=== PATIENT | female | born 1985 | race Caucasian/White ===

== ENCOUNTER 2016-12-30 13:53 | Emergency (ER) | payer OTHER ==
[2016-12-30 14:25] LABS: BILIRUBIN NEGATIVE (NEGATIVE); BLOOD NEGATIVE Ery/uL (NEGATIVE); CLARITY CLEAR (CLEAR); COLOR YELLOW (YELLOW); GLUCOSE (U) NORMAL (NORMAL); KETONE (U) TRACE mg/dL (NEGATIVE); LEUKOCYTES NEGATIVE Leu/uL (NEGATIVE); NITRITE NEGATIVE (NEGATIVE); PROTEIN TRACE (LOW) mg/dL (NEGATIVE); SPECIFIC GRAVITY 1.025 (1.001-1.030); UROBILINOGEN 0.2 mg/dL (0.2-1.0); pH 5.5 (5.0-9.0)
[2016-12-30 14:35] LABS: BACTERIA TRACE; MUCOUS TRACE
[2016-12-30 15:17] LABS: BASOPHIL 0.2 % (0-2); EOSINOPHIL 0.3 % (0-5); HCT 38.1 % (37.0-47.0); HGB 12.7 g/dl (12.5-16.0); LYMPHOCYTE 8.2 % (15-48); MCH 29.1 pg (25.0-31.0); MCHC 33.3 g/dL (32.0-36.0); MCV 87.4 fL (78.0-100.0); MONOCYTE 6.1 % (0-12); MPV 9.6 fL (6.0-9.5); NEUTROPHIL 85.2 % (41-80); PLT 138 K/uL (150-400); RBC 4.36 M/uL (4.20-5.40); RDW 13.6 % (11.5-14.0); WBC 9.7 K/uL (4.0-10.5)
[2016-12-30 15:35] LABS: CREATININE 0.6 mg/dL (0.5-1.0); POTASSIUM 3.7 mmol/L (3.5-5.1)
[2016-12-30 16:17] LABS: AMPHETAMINES POSITIVE (NEGATIVE); BARBITURATES NEGATIVE (NEGATIVE); BENZODIAZEPINES NEGATIVE (NEGATIVE); COCAINE NEGATIVE (NEGATIVE); MARIJUANA (THC) NEGATIVE (NEGATIVE); METHADONE NEGATIVE (NEGATIVE); TRICYCLIC ANTIDEPRESSANT NEGATIVE (NEGATIVE)
== END 2016-12-30 16:50 | disposition home or self-care (01) ==
LOC: FER 13:53
PROVIDERS: Emergency Medicine; Nurse Practitioner
DX: B34.9 Viral infection, unspecified (principal); E86.0 Dehydration; F17.210 Nicotine dependence, cigarettes, uncomplicated
CPT/HCPCS: 36415; 80048; 80305; 81001; 85025; 87804; 87899; 93005; J1885

== ENCOUNTER 2017-01-03 22:28 | Emergency (ER) | payer OTHER ==
[2017-01-03 23:30] LABS: BILIRUBIN NEGATIVE (NEGATIVE); BLOOD 3+ Ery/uL (NEGATIVE); COLOR YELLOW (YELLOW); GLUCOSE (U) NORMAL (NORMAL); KETONE (U) NEGATIVE (NEGATIVE); LEUKOCYTES 2+ Leu/uL (NEGATIVE); NITRITE NEGATIVE (NEGATIVE); PROTEIN TRACE (LOW) mg/dL (NEGATIVE); SPECIFIC GRAVITY <=1.005 (1.001-1.030)
[2017-01-03 23:32] LABS: CLARITY HAZY (CLEAR)
[2017-01-03 23:35] LABS: BACTERIA TRACE
[2017-01-03 23:40] LABS: BASOPHIL 0.4 % (0-2); EOSINOPHIL 0.3 % (0-5); HCT 33.2 % (37.0-47.0); HGB 11.2 g/dl (12.5-16.0); MCH 28.9 pg (25.0-31.0); MCHC 33.7 g/dL (32.0-36.0); MCV 85.6 fL (78.0-100.0); MONOCYTE 8.5 % (0-12); MPV 10.7 fL (6.0-9.5); NEUTROPHIL 77.8 % (41-80); PLT 94 K/uL (150-400); RBC 3.88 M/uL (4.20-5.40); RDW 14.5 % (11.5-14.0)
[2017-01-03 23:44] LABS: WBC 7.1 K/uL (4.0-10.5)
[2017-01-03 23:49] LABS: AMPHETAMINES POSITIVE (NEGATIVE); BARBITURATES NEGATIVE (NEGATIVE); BENZODIAZEPINES NEGATIVE (NEGATIVE); COCAINE NEGATIVE (NEGATIVE); MARIJUANA (THC) NEGATIVE (NEGATIVE); METHADONE NEGATIVE (NEGATIVE); TRICYCLIC ANTIDEPRESSANT NEGATIVE (NEGATIVE)
[2017-01-04 00:08] LABS: FT4 (FREE T4) 1.05 ng/dL (0.93-1.70); TSH (THYROID STIM HORMONE) 2.13 uIU/mL (0.270-4.200)
[2017-01-04 00:39] LABS: BAND 14 % (0-10); EOSINOPHIL(M) 1 % (0-5); LYMPHOCYTE(M) 16 % (15-48); MONOCYTE(M) 5 % (0-12); NEUTROPHILS(M) 63 % (41-80)
[2017-01-04 00:45] LABS: ALBUMIN 2.6 g/dL (3.5-5.0); BILIRUBIN - TOTAL 0.5 mg/dL (0.1-1.0); CREATININE 0.7 mg/dL (0.5-1.0); GLOBULIN (CALCULATION) 3.6 g/dL (2.2-4.2); POTASSIUM 3.6 mmol/L (3.5-5.1); TOTAL PROTEIN 6.2 g/dL (6.4-8.3)
[2017-01-04 01:10] LABS: TROPONIN T < 0.010 ng/mL
[2017-01-04 01:11] LABS: PRO-BNP 1761 pg/mL (0-125)
[2017-01-04 01:42] LABS: BILIRUBIN NEGATIVE (NEGATIVE); BLOOD 2+ Ery/uL (NEGATIVE); CLARITY CLEAR (CLEAR); COLOR YELLOW (YELLOW); GLUCOSE (U) NORMAL (NORMAL); KETONE (U) NEGATIVE (NEGATIVE); LEUKOCYTES 1+ Leu/uL (NEGATIVE); NITRITE NEGATIVE (NEGATIVE); PROTEIN NEGATIVE (NEGATIVE); SPECIFIC GRAVITY <=1.005 (1.001-1.030)
[2017-01-04 01:46] LABS: SQUAMOUS EPITHELIAL CELLS RARE; URINARY WBC RARE
[2017-01-10 14:15] LABS: PLATELET ESTIMATE DECREASED; PLATELET MORPHOLOGY NORMAL
[2017-01-10 14:16] LABS: TOTAL CELL COUNT 100
== END 2017-01-04 06:30 | disposition other institution (70) ==
LOC: FER 22:28
PROVIDERS: Emergency Medicine Emergency Medical Services
DX: J18.9 Pneumonia, unspecified organism (principal); R60.1 Generalized edema; R21 Rash and other nonspecific skin eruption; R00.0 Tachycardia, unspecified; E86.9 Volume depletion, unspecified; R82.90 Unspecified abnormal findings in urine; F17.210 Nicotine dependence, cigarettes, uncomplicated
CPT/HCPCS: 36415; 71010; 71275; 80053; 80305; 81001; 83605; 83880; 84439; 84443; 84484; 85025; 85379; 85651; 86140; 86308; 86403; 87040; 87076; 87077; 87088; 87186; 87450; 93005; C9113; J1885; J1940; J2060; J2270; J2405; J2930; J3370; Q9967

== ENCOUNTER 2021-04-02 17:47 | Emergency (ER) | payer OTHER ==
[~2021-04-02 17:47] MED LIST: BACTRIM DS TAB1 EACH PO; CLEOCIN300 MG PO; METOPROLOL TART25 M1 PO
[2021-04-02 18:22] LABS: BASOPHIL 0.3 % (0-2); EOSINOPHIL 2.7 % (0-5); HCT 39.5 % (37.0-47.0); HGB 12.4 g/dl (12.5-16.0); LYMPHOCYTE 23.6 % (15-48); MCH 29.7 pg (25.0-31.0); MCHC 31.4 g/dL (32.0-36.0); MCV 94.5 fL (78.0-100.0); MONOCYTE 10.3 % (0-12); MPV 10.2 fL (6.0-9.5); NEUTROPHIL 63.1 % (41-80); NRBC 0; PLT 178 K/uL (150-400); RBC 4.18 M/uL (4.20-5.40); RDW 13.1 % (11.5-14.0); WBC 3.8 K/uL (4.0-10.5)
[2021-04-02 18:32] LABS: INR 1.09 (0.9-1.2); PROTHROMBIN TIME 13.5 SECONDS (11.8-13.4); PTT 41.2 SECONDS (24.4-34.7)
[2021-04-02 18:33] LABS: D-DIMER 0.59 ug/mLFEU (0.00-0.41)
[2021-04-02 18:50] LABS: HCG QUANTITATIVE <1 mIU/mL (0-6); PRO-BNP 767 pg/mL (<125)
[2021-04-02 18:53] LABS: ALBUMIN 3.3 g/dL (3.4-5.0); ALKALINE PHOSHATASE 138 U/L (46-116); ALT 285 U/L (14-59); AST 149 U/L (15-37); BILIRUBIN - TOTAL 0.8 mg/dL (0.2-1.0); BUN 14 mg/dL (7-18); BUN/CREAT RATIO (CALC) 23.7 RATIO; CHLORIDE 105 mmol/L (98-107); CO2 (BICARBONATE) 29 mmol/L (21-32); CPK 59 U/L (26-192); CREATININE 0.59 mg/dL (0.51-0.95); GLOBULIN (CALCULATION) 4.8 g/dL; GLUCOSE 128 mg/dL (74-106); LDH 199 U/L (81-234); POTASSIUM 4.4 mmol/L (3.5-5.1); TOTAL PROTEIN 8.1 g/dL (6.4-8.2)
[2021-04-02 19:03] LABS: BILIRUBIN 1+ mg/dL (NEGATIVE); BLOOD NEGATIVE Ery/uL (NEGATIVE); CLARITY CLEAR (CLEAR); COLOR YELLOW (YELLOW); GLUCOSE (U) NORMAL (NORMAL); LEUKOCYTES NEGATIVE Leu/uL (NEGATIVE); NITRITE NEGATIVE (NEGATIVE); PROTEIN TRACE (LOW) mg/dL (NEGATIVE); SPECIFIC GRAVITY >=1.030 (1.001-1.030); pH 5.5 (5.0-9.0)
[2021-04-02 19:06] LABS: AMPHETAMINES NEGATIVE (NEGATIVE); BARBITURATES NEGATIVE (NEGATIVE); ECSTASY (MDMA) NEGATIVE (NEGATIVE); MARIJUANA (THC) NEGATIVE (NEGATIVE); METHADONE NEGATIVE (NEGATIVE); OPIATES POSITIVE (NEGATIVE)
[2021-04-02 19:07] LABS: OXYCODONE NEGATIVE (NEGATIVE)
[2021-04-03 10:02] LABS: BUN/CREAT RATIO (CALC) 14.3 RATIO; CREATININE 0.63 mg/dL (0.51-0.95); MAGNESIUM 1.8 mg/dL (1.8-2.4); POTASSIUM 3.2 mmol/L (3.5-5.1)
[2021-04-04 23:29] LABS: ALBUMIN 2.8 g/dL (3.4-5.0); BILIRUBIN - TOTAL 0.8 mg/dL (0.2-1.0); BUN/CREAT RATIO (CALC) 8.3 RATIO; CREATININE 0.6 mg/dL (0.51-0.95); GLOBULIN (CALCULATION) 4.3 g/dL; POTASSIUM 3.7 mmol/L (3.5-5.1); TOTAL PROTEIN 7.1 g/dL (6.4-8.2)
[2021-04-04 23:51] LABS: HCT 35.3 % (37.0-47.0); HGB 11.9 g/dl (12.5-16.0); MCH 29.8 pg (25.0-31.0); MCHC 33.7 g/dL (32.0-36.0); MCV 88.5 fL (78.0-100.0); MPV 10.3 fL (6.0-9.5); RBC 3.99 M/uL (4.20-5.40); RDW 12.4 % (11.5-14.0); WBC 3.7 K/uL (4.0-10.5)
== END 2021-04-05 11:55 | disposition home or self-care (01) ==
LOC: FER 17:47
PROVIDERS: Emergency Medicine; Emergency Medicine Emergency Medical Services
DX: T46.5X2A Poisoning by other antihypertensive drugs, intentional self-harm, initial encounter (principal); F11.20 Opioid dependence, uncomplicated; F17.200 Nicotine dependence, unspecified, uncomplicated; Z20.822 Contact with and (suspected) exposure to COVID-19
CPT/HCPCS: 36415; 36600; 71045; 80048; 80053; 80305; 81003; 82550; 82728; 82803; 83605; 83615; 83735; 83880; 84145; 84484; 84702; 85025; 85379; 85610; 85730; 86140; 93005; G0480; J7030; J7070; Q0169; U0002

== ENCOUNTER 2021-08-22 19:03 | Emergency (ER) | payer OTHER ==
[2021-08-22 19:38] LABS: BASOPHIL 0.5 % (0-2); EOSINOPHIL 1.6 % (0-5); HCT 43.4 % (37.0-47.0); HGB 14.5 g/dl (12.5-16.0); LYMPHOCYTE 39.5 % (15-48); MCH 30.7 pg (25.0-31.0); MCHC 33.4 g/dL (32.0-36.0); MCV 91.8 fL (78.0-100.0); MONOCYTE 6.1 % (0-12); MPV 10.9 fL (6.0-9.5); NRBC 0; PLT 238 K/uL (150-400); RBC 4.73 M/uL (4.20-5.40); RDW 12.3 % (11.5-14.0); WBC 6.1 K/uL (4.0-10.5)
[2021-08-22 20:01] LABS: BUN/CREAT RATIO (CALC) 14.3 RATIO; CREATININE 0.7 mg/dL (0.51-0.95); POTASSIUM 3.4 mmol/L (3.5-5.1)
[2021-08-22 20:18] LABS: BILIRUBIN NEGATIVE (NEGATIVE); BLOOD 3+ Ery/uL (NEGATIVE); CLARITY HAZY (CLEAR); COLOR RED (YELLOW); GLUCOSE (U) NORMAL (NORMAL); LEUKOCYTES NEGATIVE Leu/uL (NEGATIVE); NITRITE NEGATIVE (NEGATIVE); PROTEIN 2+ mg/dL (NEGATIVE); SPECIFIC GRAVITY 1.025 (1.001-1.030); UROBILINOGEN 0.2 mg/dL (0.2-1.0); pH 5.5 (5.0-9.0)
[2021-08-22 20:19] LABS: BACTERIA TRACE; URINARY RBC TNTC
[2021-08-22 20:20] LABS: AMPHETAMINES NEGATIVE (NEGATIVE); BARBITURATES NEGATIVE (NEGATIVE); ECSTASY (MDMA) NEGATIVE (NEGATIVE); MARIJUANA (THC) NEGATIVE (NEGATIVE); METHADONE NEGATIVE (NEGATIVE); OPIATES NEGATIVE (NEGATIVE); OXYCODONE NEGATIVE (NEGATIVE)
[2021-08-23] MEDS ORDERED: ONDANSETRON ODT4 MG PO (00:52)
== END 2021-08-23 00:13 | disposition home or self-care (01) ==
LOC: FER 19:03
PROVIDERS: Nurse Practitioner Family
DX: U07.1 COVID-19 (principal); T50.901A Poisoning by unspecified drugs, medicaments and biological substances, accidental (unintentional), initial encounter; R55 Syncope and collapse
CPT/HCPCS: 36415; 80048; 80305; 81001; 85025; J2310; J2405; J7030; U0002

== ENCOUNTER 2022-01-22 13:39 | Emergency (ER) | payer OTHER ==
[~2022-01-22 13:39] MED LIST changes: +ONDANSETRON ODT4 MG PO
== END 2022-01-22 16:21 | disposition left against medical advice (07) ==
LOC: FER 13:39
DX: R22.0 Localized swelling, mass and lump, head (principal); R51.9 Headache, unspecified; Z53.29 Procedure and treatment not carried out because of patient's decision for other reasons
CPT/HCPCS: 99281

== ENCOUNTER 2022-02-17 16:12 | Emergency (ER) | payer OTHER | END 2022-02-17 20:15 | disposition home or self-care (01) | LOC: FER 16:12 | DX: F11.90 Opioid use, unspecified, uncomplicated (principal); I50.9 Heart failure, unspecified; Z79.899 Other long term (current) drug therapy | CPT/HCPCS: 99283; J7030 ==

== ENCOUNTER 2022-02-22 16:56 | Emergency (ER) | payer OTHER ==
[2022-02-22 18:01] LABS: BILIRUBIN NEGATIVE (NEGATIVE); BLOOD TRACE-INTACT Ery/uL (NEGATIVE); CLARITY CLEAR (CLEAR); COLOR YELLOW (YELLOW); GLUCOSE (U) NORMAL (NORMAL); LEUKOCYTES 2+ Leu/uL (NEGATIVE); NITRITE NEGATIVE (NEGATIVE); PROTEIN NEGATIVE (NEGATIVE); SPECIFIC GRAVITY 1.015 (1.001-1.030); UROBILINOGEN 0.2 mg/dL (0.2-1.0); pH 6.5 (5.0-9.0)
[2022-02-22 18:17] LABS: BACTERIA TRACE; SQUAMOUS EPITHELIAL CELLS >50; URINARY RBC RARE
[2022-02-22 18:57] LABS: BASOPHIL 0.4 % (0-2); EOSINOPHIL 1.4 % (0-5); HCT 38.1 % (37.0-47.0); HGB 11.9 g/dl (12.5-16.0); LYMPHOCYTE 16.1 % (15-48); MCH 27.5 pg (25.0-31.0); MCHC 31.2 g/dL (32.0-36.0); MONOCYTE 10.4 % (0-12); MPV 10.6 fL (6.0-9.5); NEUTROPHIL 71.5 % (41-80); NRBC 0; PLT 174 K/uL (150-400); RBC 4.33 M/uL (4.20-5.40); RDW 13.5 % (11.5-14.0); WBC 5.7 K/uL (4.0-10.5)
[2022-02-22 19:19] LABS: AMPHETAMINES NEGATIVE (NEGATIVE); BARBITURATES NEGATIVE (NEGATIVE); ECSTASY (MDMA) NEGATIVE (NEGATIVE); MARIJUANA (THC) NEGATIVE (NEGATIVE); METHADONE NEGATIVE (NEGATIVE); OPIATES NEGATIVE (NEGATIVE); OXYCODONE NEGATIVE (NEGATIVE)
[2022-02-22 19:23] LABS: BUN/CREAT RATIO (CALC) 17.7 RATIO; CREATININE 0.62 mg/dL (0.51-0.95); POTASSIUM 3.8 mmol/L (3.5-5.1)
== END 2022-02-22 20:20 | disposition home or self-care (01) ==
LOC: FER 16:56
PROVIDERS: Nurse Practitioner Family
DX: T40.1X1A Poisoning by heroin, accidental (unintentional), initial encounter (principal); F11.10 Opioid abuse, uncomplicated
CPT/HCPCS: 36415; 80048; 80305; 81001; 85025